=== PATIENT | female | born 1940 | race Two or more races ===

== ENCOUNTER 2024-03-15 17:59 | Emergency (ER) | payer OTHER, MEDICAID ==
[~2024-03-15] VITALS: Ht 154.9 cm; Wt 49.9 kg
[2024-03-15] MEDS ORDERED: ACETAMINOPHEN ES 500 MG TABLET ONE (18:15)
[2024-03-15] MEDS: ACETAMINOPHEN ES 500 MG TABLET PO ONE (18:21)
[2024-03-15 18:32] VITALS: BP 138/88; TEMP 98.4; O2SAT 98
== END 2024-03-15 21:20 ==
LOC: ER 18:08
DX: S40.011A Contusion of right shoulder, initial encounter (principal); R51.9 Headache, unspecified; I10 Essential (primary) hypertension; Z88.1 Allergy status to other antibiotic agents; W18.39XA Other fall on same level, initial encounter; Y93.89 Activity, other specified; Y92.89 Other specified places as the place of occurrence of the external cause; Y99.8 Other external cause status
CPT/HCPCS: 70450-TC; 71045-TC; 73030-TC